=== PATIENT | female | born 1970 | race Caucasian/White ===

== ENCOUNTER → 2017-03-11 | Outpatient (CLI) | payer MEDICARE, OTHER ==
--- NOTE | 2017-03-11 16:59 | MR ---
EXAMINATION TYPE: MR cspine/lspine wo con DATE OF EXAM: 03/11/2017 COMPARISON: 01/17/2013 HISTORY: Cervicalgia, LBP CONTRAST: 0 mL intravenous Gadavist. TECHNIQUE: Multiplanar, multisequence images of the lumbar spine were acquired. FINDINGS: L5-S1: No significant disc bulge or disc herniation. No spinal canal stenosis. Mild left foraminal narrowing is present. Facet hypertrophy is present.. L4-L5: Broad-based subligamentous disc herniation is present with mild to moderate anterior thecal sa c compression. No AP spinal canal stenosis present. Some nerve root impingement in the lateral recess es may be present. Facet hypertrophy is present. Left foraminal narrowing is present. L3-L4: Right paracentral asymmetric disc bulge has mild anterior thecal sac compression. No AP spinal canal stenosis present. Facet hypertrophy is present. Neural foramen are patent No spinal canal sharon nosis. No foraminal stenosis. Neural foramen are patent.. L2-L3: No significant disc bulge or disc herniation. No spinal canal stenosis. No foraminal stenosi s. Neural foramen are patent.. L1-L2: No significant disc bulge or disc herniation. No spinal canal stenosis. No foraminal stenosi s. Neural foramen are patent.. T12-L1: No significant disc bulge or disc herniation. No spinal canal stenosis. No foraminal stenos is. Neural foramen are patent.. IMPRESSION: 1. Large subligamentous disc herniation with moderate anterior thecal sac compression centrally at L4 -5. No AP spinal canal stenosis or neural foraminal stenosis is present. Some nerve root impingement within the lateral recesses is not excluded. 2. Right paracentral disc bulge L3-4 with degenerative disc changes. No disc bulge has mild anterior thecal sac compression without stenosis. EXAMINATION TYPE: MR sriramine/yogi wo con DATE OF EXAM: 03/11/2017 COMPARISON: NONE HISTORY: Cervicalgia, LBP CONTRAST: Performed utilizing 0 mL intravenous Gadavist gadolinium contrast. TECHNIQUE: Multiplanar multiecho imaging on a 3.0 Daniella magnet is performed through the cervical spin e. FINDINGS: The craniovertebral junction is normal. Vertebral body alignment is normal. Disc desicca tion is present through the cervical spine. Some disc space narrowing is present C6-7. C7-T1: No focal disc herniation or significant disc bulge is evident. No spinal canal stenosis or n eural foraminal stenosis is present. C6-7: Broad-based disc bulge and endplate changes are present C6-7 with anterior thecal sac flattenin g. No cord contact is evident. No spinal canal stenosis or neural foraminal stenosis present.. C5-6: Mild disc bulge has anterior thecal sac compression. No cord contact is evident. No spinal jessi l stenosis present. Mild bilateral foraminal narrowing is present.. C4-5: Mild disc bulge is present with anterior thecal sac contact. No spinal canal stenosis present. Minimal foraminal narrowing is present.. C3-4: Mild disc bulge is present with anterior thecal sac contact. No cord contact is evident. No spi nal canal stenosis or neural foraminal stenosis is present.. C2-3: No focal disc herniation or significant disc bulge is evident. No spinal canal stenosis or saranya ral foraminal stenosis is present. There is some straightening of the upper cervical spine which is stable from comparison IMPRESSIONS: 1. Slight progression of cervical disc bulging. Mild disc bulges are present throughout the cervical spine with mild anterior thecal sac contact. No spinal canal stenosis or nerve root impingement or sp inal cord contact is evident.
== END | disposition home or self-care (01) ==
LOC: RADMRIMAIN 13:13
PROVIDERS: ATTEND Psychiatry & Neurology Neurology
DX: M50.21 Other cervical disc displacement, high cervical region (principal); M51.26 Other intervertebral disc displacement, lumbar region; M47.816 Spondylosis without myelopathy or radiculopathy, lumbar region
CPT/HCPCS: 72141; 72148

== ENCOUNTER → 2017-05-07 | Outpatient (CLI) | payer MEDICARE, OTHER ==
--- NOTE | 2017-05-07 14:53 | CONS ---
CONSULTATION DATE OF SERVICE: 05/07/2017 A 46-year-old lady who has been evaluated in the [facility] for significant excessive daytime sleepiness, sleep paralysis, snoring, awakenings from sleep. HISTORY OF PRESENT ILLNESS/SLEEP-WAKE EVALUATION: Patient's usual sleep schedule presently from 11:30 pm to 6 am. She denied any significant problems with falling asleep, although she has often episodes of sleep on paralysis, when you go to bed, close your eyes and developing sleep paralysis for about a minute and after that she is scared and she gets out of bed and goes to bed again later. Sometimes she has sleep paralysis again when she goes to bed at the later time. She snores. Nobody did not tell about episodes of stopped breathing during the sleep. Presently patient sleeps by herself. She wakes up from sleep up to 6 times with up to 6 episodes of nocturia. Usually no episodes of seeing dreams while falling asleep. Patient denied any weakness in the body doing slow motion during the day light in response on the laughing. [place] Sleepiness Scale significantly increased to 16. She can take naps any time and she likes to take naps. She denied any dreaming during the nap, usually no sleep paralysis during nap and she usually does not feel refreshed after nap. PAST MEDICAL HISTORY: Positive for fibromyalgia, depression, allergy, carpal tunnel syndrome, back problems. PAST SURGICAL HISTORY: Partial hysterectomy, surgery for carpal tunnel syndrome bilaterally, right ankle surgery. MEDICATIONS: Celexa, Abilify, vitamin D3, oxycodone, Xyzal, Singulair. SOCIAL HISTORY: Positive for smoking about 1 pack for 10 years, quit about 15 years ago. Alcohol consumption none at the present time. FAMILY HISTORY: Hypertension, stroke, cancer, mental illness, asthma. PHYSICAL EXAM: lady without distress. BP 137/74, HR 76, RR 16, height 5, 2-1/2, weight 206, BMI 37, temp 98.0, oxygen saturation at room air 99%. OROPHARYNX: Extremely low position of soft palate. Mallampati 4, restriction of nasal breathing. ABDOMEN: Obese. Neck Supple, no JVD. Thyroid is not palpable. LUNGS Clear to percussion and to auscultation. Good air exchange. No wheezing or rhonchi. HEART S1, S2 regular. No murmurs, gallops, or rubs. EXTREMITIES No clubbing or cyanosis. PHOTO INTERN Awake, alert, and oriented X3. Cranial nerves 2 to 7 intact. There is no fasciculation or atrophy. noted. No focal deficits observed. IMPRESSION: 1. Snoring, awakenings from sleep up to 6 times, extremely low position of soft palate, obesity, sleepiness, obstructive sleep apnea-hypopnea syndrome. 2. 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 3. Significant excessive daytime sleepiness. [place] Sleepiness Scale increased to 16. The patient may take naps any time. Differential diagnosis should include hypersomnia and narcolepsy. 4. Obesity, body mass index of 37. 5. Fibromyalgia. 6. History of herniated disc on the back and neck. 7. Depression. 8. Allergy. 9. Status post hysterectomy. 10.Status post bilateral treatment for carpal tunnel syndrome. 11.Status post right ankle surgery. PLAN: 1. Polysomnography for evaluation of patient's breathing during sleep. 2. CPAP/BiPAP titration if sleep study confirms obstructive sleep apnea-hypopnea syndrome. 3. Preferable position during sleep on the side. 4. No driving if patient feels any sleepiness. Patient is aware of civil and criminal liability for unsafe driving. 5. I will see patient for follow up visit to explain results of testing and following plan. 6. Multiple sleep latency test if sleep study will be negative. Obstructive sleep apnea-hypopnea syndrome for objective evaluation patient symptoms of excessive daytime sleepiness and to check for any sleep onset REM periods for possibility of hypersomnia and narcolepsy. Thank you very much for referring this patient for consultation. Sincerely, Eron Rios MD, PhD, FAASM Diplomat of [employer] Physician Intensivist of [facility] [place] MMODL / IJN: [id number] /
== END ==
LOC: SLEEP 13:36
PROVIDERS: ATTEND Internal Medicine
DX: G47.33 Obstructive sleep apnea (adult) (pediatric) (principal); E66.9 Obesity, unspecified; G47.10 Hypersomnia, unspecified; M79.7 Fibromyalgia; F32.9 Major depressive disorder, single episode, unspecified; T78.40XA Allergy, unspecified, initial encounter; Z68.37 Body mass index [BMI] 37.0-37.9, adult; Z90.710 Acquired absence of both cervix and uterus; Z87.891 Personal history of nicotine dependence; Z79.899 Other long term (current) drug therapy; Z98.890 Other specified postprocedural states
CPT/HCPCS: 99211

== ENCOUNTER 2017-07-15 08:06 | Emergency (ER) | payer MEDICARE, OTHER ==
--- NOTE | 2017-07-15 08:41 | ED ---
General Adult HPI - General Chief complaint: Extremity Problem,Nontraumatic Stated complaint: Leg pain Time Seen by Provider: 07/15/17 08:21 Source: patient, RN notes reviewed Mode of arrival: ambulatory Limitations: no limitations - History of Present Illness Initial comments: Patient 46-year-old female presenting to the emergency room today with a chief complaint of right-sided calf pain over the last 3 days. Patient denies any specific injury or trauma. She states she felt like a charley horse this started 3 days ago. Little tender to the right distal calf. Patient states worse with dorsiflexion. Denies any other complaints or symptoms. Denies any history of blood clots. Patient denies any recent fever, chills, shortness of breath, chest pain, back pain, abdominal pain, nausea or vomiting, numbness or tingling, headaches or visual changes, or any other complaints. - Related Data Home Medications Medication Instructions Recorded Confirmed ARIPiprazole [Abilify] 5 mg PO DAILY 07/15/17 07/15/17 Albuterol Sulfate [Proair Hfa] 2 puff INHALATION RT-Q6H PRN 07/15/17 07/15/17 Cholecalciferol [Vitamin D3] 5,000 unit PO DAILY 07/15/17 07/15/17 Citalopram Hydrobromide [CeleXA] 10 mg PO DAILY 07/15/17 07/15/17 Citalopram Hydrobromide [CeleXA] 20 mg PO DAILY 07/15/17 07/15/17 Levocetirizine Dihydrochloride 10 mg PO DAILY 07/15/17 07/15/17 [Xyzal] Montelukast Sodium [Singulair] 10 mg PO DAILY 07/15/17 07/15/17 Allergies Allergy/AdvReac Type Severity Reaction Status Date / Time No Known Allergies Allergy Verified 07/15/17 08:21 Review of Systems ROS Statement: Those systems with pertinent positive or pertinent negative responses have been documented in the HPI. ROS Other: All systems not noted in ROS Statement are negative. Past Medical History Past Medical History: Asthma, Fibromyalgia, Osteoarthritis (OA), Pneumonia, Seizure Disorder, Syncope Additional Past Medical History / Comment(s): SHINGLES-PT STATED FIRST DX WAS AT AGE 21 AND HAS HAD 12 REOCCURRANCES SAME AREA SINCE,TREMORS, MIGRAINES.PALPITATIONS, BRONCHITIS, SINUS PROBLEMS, IBS, CHRONIC BACK PAIN, HAD PAIN CLINIC PROCEDURES ON C5-6, SCIATICA History of Any Multi-Drug Resistant Organisms: None Reported Past Surgical History: Adenoidectomy, Bariatric Surgery, Hysterectomy, Tonsillectomy Additional Past Surgical History / Comment(s): orif right ankle, bilateral carpal tunnel, lap band removal Past Anesthesia/Blood Transfusion Reactions: Motion Sickness Additional Past Anesthesia/Blood Transfusion Reaction / Comment(s): CLAUSTERPHOBIA Past Psychological History: Anxiety, Depression Smoking Status: Former smoker Past Alcohol Use History: None Reported Past Drug Use History: None Reported - Past Family History Father Additional Family Medical History / Comment(s): ALCOHOLIC Mother Family Medical History: CVA/TIA Additional Family Medical History / Comment(s): AGE 59 General Exam - General Exam Comments Initial Comments: General: The patient is awake and alert, in no distress, and does not appear acutely ill. Neck: The neck is supple, there is no tenderness or JVD. Cardiovascular: There is a regular rate and rhythm. No murmur, rub or gallop is appreciated. Respiratory: Lungs are clear to auscultation, respirations are non-labored, breath sounds are equal. No wheezes, stridor, rales, or rhonchi. Musculoskeletal: Normal appearance the right lower extremity no deformity. No obvious swelling. Tender on palpation to the posterior aspect of the right distal calf. Mild tenderness reproduced with dorsiflexion. Strength 5/5. Sensation intact. Pulses 2+ bilaterally. Neurological: A&O x 3. CN II-XII intact, There are no obvious motor or sensory deficits. Coordination appears grossly intact. Speech is normal. Skin: Skin is warm and dry and no rashes or lesions are noted. Psychiatric: Normal mood and affect. Limitations: no limitations Course Vital Signs 07/15/17 08:11 Temperature 98 F Pulse Rate 67 Respiratory 16 Rate Blood Pressure 115/59 O2 Sat by Pulse 97 Oximetry Medical Decision Making - Medical Decision Making Ultrasound negative for any evidence of DVT. No other acute abnormality. Results were discussed with patient. Patient was most likely a muscle strain. Advised follow-up family doctor if symptoms or not improving. Advised return if any symptoms increase or worsen. Disposition Clinical Impression: Pain of right calf Disposition: HOME SELF-CARE Condition: Good Instructions: Muscle Strain (ED) Additional Instructions: Please follow-up with family doctor in the next 2 days of symptoms have not improved. Please return to emergency room if the symptoms increase or worsen or for any other concerns. Referrals: Heavenly Ngo MD [Primary Care Provider] - 1-2 days Time of Disposition: 09:38
--- NOTE | 2017-07-15 09:20 | US ---
EXAMINATION TYPE: US venous doppler duplex LE RT DATE OF EXAM: 07/15/2017 9:00 AM COMPARISON: NONE CLINICAL HISTORY: 46-year-old female with right leg pain for 3 days Pain. Right calf pain x3 days SIDE PERFORMED: Right TECHNIQUE: The lower extremity deep venous system is examined utilizing real time linear array sonog domingo with graded compression, doppler sonography and color-flow sonography. FINDINGS: VESSELS IMAGED: External Iliac Vein (EIV) Common Femoral Vein Deep Femoral Vein Greater Saphenous Vein * Femoral Vein Popliteal Vein Small Saphenous Vein * Proximal Calf Veins (* superficial vessels) Right Leg: Negative for DVT Additional targeted scanning at the calf area at the site of patient's pain. No abnormality visualize at the patient's area of pain. IMPRESSION: No evidence for DVT within the right lower extremity. Additional scanning at the calf corresponding t o the site of patient's pain shows no discrete sonographic abnormality.
[2017-07-15 09:39] VITALS: BP 129/60; PULSE 80; RESP 18; TEMP 97.9
== END 2017-07-15 09:39 | disposition home or self-care (01) ==
LOC: EC 08:06
DX: M79.661 Pain in right lower leg (principal); J45.909 Unspecified asthma, uncomplicated; F41.9 Anxiety disorder, unspecified; F32.9 Major depressive disorder, single episode, unspecified; Z87.891 Personal history of nicotine dependence; Z79.899 Other long term (current) drug therapy
CPT/HCPCS: 99283